=== PATIENT | male | born 1965 | race Hispanic/Latino ===

== ENCOUNTER 2017-05-06 12:08 | Inpatient (IN) | payer SELFPAY ==
--- NOTE | 2017-05-06 13:01 | RAD ---
PORTABLE CHEST: HISTORY: Chest pain. Shortness of breath. FINDINGS: The lungs appear clear. No infiltrate identified. The heart and mediastinum are unremarkable. IMPRESSION: No acute abnormality identified. POS: [facility]
--- NOTE | 2017-05-06 13:03 | RAD ---
LEFT ANKLE TWO VIEWS: HISTORY: Injury to left ankle with pain. FINDINGS/IMPRESSION: There is a fracture-dislocation at the tibiotalar joint. There is a displaced fracture of the medial malleolus, and the talus exhibits medial displacement in the frontal projection. There is a comminuted displaced fracture of the distal fibula, just above the lateral malleolus. Num erous small fragments with displacement and angulation are present at this location. POS: [facility]
[2017-05-06 13:11] LABS: Hemoglobin 13.9 g/dL (14.0-18.0); Mean Corpuscular HGB CONC 32.4 g/dL (32.0-36.0); Mean Corpuscular Hemoglobin 30.8 pg (27.0-31.0); Mean Corpuscular Volume 95.3 fl (80.0-94.0); Mean Platelet Volume 7.4 fL (7.4-10.4); Platelet Count 305 thou/uL (130-400); RBC Distribution Width 12.8 % (11.5-14.5); Red Blood Cell (RBC) Count 4.51 mill/uL (4.70-6.10)
[2017-05-06 13:32] LABS: ALT (SGPT) 38 U/L (8-55); AST (SGOT) 37 U/L (5-34); Alkaline Phosphatase 79 U/L (40-150); Anion Gap 13 mmol/L (10-20); BUN (Urea Nitrogen) 15 mg/dL (8.4-25.7); Bilirubin, Total 0.5 mg/dL (0.2-1.2); Calc. Creatinine Clearance 0 mL/min (70-130); Calcium 9.7 mg/dL (7.8-10.44); Carbon Dioxide 25 mmol/L (22-29); Chloride 106 mmol/L (98-107); Estimated GFR-MDRD 83; Globulin 3.5 g/dL (2.4-3.5); Glucose 137 mg/dL (70-105); Potassium 4.1 mmol/L (3.5-5.1); Protein, Total 7.5 g/dL (6.0-8.3); Sodium 140 mmol/L (136-145)
--- NOTE | 2017-05-06 13:35 | CT ---
CT BRAIN: Date: 05/06/17 HISTORY: Head trauma. Fall. FINDINGS: Noncontrast enhanced CT images of brain obtained. CT images of brain demonstrate the brain to be unremarkable. No evidence of intracranial masses, hemo rrhages, strokes, or contusions seen. IMPRESSION: Normal CT brain. POS: [facility]
--- NOTE | 2017-05-06 13:44 | RAD ---
TWO VIEWS RIGHT TIBIA AND FIBULA: HISTORY: Rolled ankle while loading an 18-virgen. Positive deformity. TECHNIQUE: AP and lateral views of the right tibia and fibula are obtained. FINDINGS: No evidence of right tibia or fibula fractures, subluxations, or bony lesions seen. IMPRESSION: Normal two views, right tibia and fibula. POS: [facility]
--- NOTE | 2017-05-06 13:44 | CT ---
CT FACIAL BONES: Date: 05/06/17 Multiple axial tomograms obtained through facial bones with multiplanar reconstruction. HISTORY: Injury to face with pain. FINDINGS: Nasal bones appear intact. Orbits appear intact. Zygoma appear intact. Paranasal sinuses are well aer ated. The maxilla appears intact. Mandible appears intact. IMPRESSION: No evidence of facial bones fracture. POS: [facility]
--- NOTE | 2017-05-06 13:45 | CT ---
CERVICAL SPINE CT SCAN WITHOUT IV CONTRAST: Date: 05/06/17 HISTORY: 61-year-old male with history of neck pain following an injury. FINDINGS: Patient's large body habitus somewhat lowers the sensitivity of this study. There is some generalized cervical spondylosis. No evidence for acute fracture or facet dislocation. There is some motion luisito fact. IMPRESSION: Exam is somewhat limited because of large body habitus and motion artifact. No evidence for acute fra cture or facet dislocation. POS: [facility]
--- NOTE | 2017-05-06 13:46 | RAD ---
LEFT TIBIA AND FIBULA THREE VIEWS: HISTORY: Injury to left lower extremity with pain. FINDINGS/IMPRESSION: A comminuted displaced fracture of the distal fibula diaphysis is noted, as described on ankle films. A displaced fracture of the medial malleolus and dislocation of the tibiotalar joint is also noted, as described on ankle films. The tibia and fibula, proximally, appear intact. POS: [facility]
[2017-05-06 13:52] LABS: Lymphocytes 3 % (21-51); MDiff Complete? YES; Monocytes 1 % (0-10); Neutrophil 96 % (42-75); PLT Morphology Comment Appears Adequate
[2017-05-06] MEDS ORDERED: CEFAZOLIN/Water 2 GM/20 ML SYRINGE ONE (14:34)
--- NOTE | 2017-05-06 14:53 | CON ---
DATE OF CONSULTATION: 05/06/2017 REASON FOR CONSULTATION: Left ankle fracture. 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 I was consulted for the left ankle. Exam shows left ankle has open wound medially which is freely bleeding and obvious displacement. He has pulses which can be detected by Doppler, but ar e difficult to feel due to swelling. Ankle is unstable and very painful and intact sensation to his toes. Radiograph show comminuted fibular fracture well above the mortise, disruption of the tibiofib ular syndesmosis and the medial malleolus fracture. PLAN: Open reduction and internal fixation of the ankle with ORIF of the medial malleolus, placement of a TightRope device probably two of these since he is morbidly obese, possible internal fixation o f the fibula up higher in the leg as well. This will be determined after the reduction of the syndes mosis. I think the fibula more proximally might heal better without an extensive dissection.
[2017-05-06] MEDS ORDERED: Adacel (T-DAP) 0.5 ML VIAL ONE (15:28)
[2017-05-06] MEDS ORDERED: HYDROmorphone 0.5 MG/0.5 ML SYRINGE ONE (15:48)
[2017-05-06] MEDS ORDERED: Ketorolac Tromethamine 30 MG/ML VIAL ONE (15:55)
[2017-05-06] MEDS ORDERED: Lidocaine 1% PF 5 ML VIAL ONE (16:08)
[2017-05-06] MEDS ORDERED: Dexamethasone 20 MG/5 ML VIAL ONE (16:08)
[2017-05-06] MEDS ORDERED: Succinylcholine Chloride 20 MG/ML 10 ml SYRINGE FS ONE (16:08)
[2017-05-06] MEDS ORDERED: PROPOFOL 200 MG/20 ML VIAL ONE (16:08)
[2017-05-06] MEDS ORDERED: Glycopyrrolate 0.2 MG/ML 5 ML SYRINGE ONE (16:08)
[2017-05-06] MEDS ORDERED: Ondansetron HCl/PF 4 MG/2 ML Vial ONE (16:08)
[2017-05-06] MEDS ORDERED: Midazolam HCl 2 mg/2 ml Vial ONE (16:10)
[2017-05-06] MEDS ORDERED: Fentanyl 250 MCG/5 ML VIAL ONE ×2 (16:10→18:44)
--- NOTE | 2017-05-06 17:10 | HP ---
DATE OF ADMISSION: 05/06/2017 ADMITTING PHYSICIAN: Dr. Tommy Sood. CONSULTING PHYSICIAN: Dr. Librado Moses, Orthopedics. HISTORY OF PRESENT ILLNESS: Mr. 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 He then fell to the ground and his leg bent under him. He then said he noticed a bone sticking out of his leg. He then reduced the obvious open fracture himself. EMS was summoned and he was transported to [facility] where a left open tibia/fibula fracture was identified. He denies any LOC. He does complain of pain to the right chest wall and right lateral upper back. Pain is reproducible. Pain is worse with palpation. He complains of no shortness of breath. He denies LOC. There is no active bleeding from the open fracture site. He has remained neurovascular intact. He has remained GCS 15. Pain is exacerbated by movement of the leg. Pain is relieved by nothing. PAST MEDICAL HISTORY: Hypertension. PAST SURGICAL HISTORY: Left wrist soft tissue I&D - 1997. SOCIAL HISTORY: Patient lives at home with his and child. He works as a production truck driver. He denies tobacco, alcohol, or drug use. ALLERGIES: No known drug allergies. MEDICATIONS: The patient reports he has an unknown antihypertensive; however, he rarely takes it. EKG: Normal sinus rhythm, right 90. DIAGNOSTIC IMAGING: Left leg x-ray shows a tibia and fibula fracture. SIGNIFICANT LABORATORY DATA: Hematology: WBC 21.0, RBC 4.51, hemoglobin 13.9, hematocrit 43.0, platelets 305. Chemistry: Sodium 140, potassium 4.1, chloride 106, carbon dioxide 25, BUN 15, creatinine 0.93, glucose 137. REVIEW OF SYSTEMS: Constitutional: The patient denies fever, chills, recent weight loss. HEENT: Denies pain, rhinorrhea, otorrhea. Cardiovascular: Denies chest pain, syncope. Respiratory: Denies cough, wheezing or shortness of breath. Gastrointestinal: Denies abdominal pain, nausea, vomiting, diarrhea or constipation. Musculoskeletal: Reports ankle deformity and pain after fall. Skin: Denies rashes or other injuries. Neurologic: Denies headaches. Denies focal weakness. PHYSICAL EXAMINATION: CONSTITUTIONAL: Obese male, lying on bed, nontoxic appearing, no acute distress. VITAL SIGNS: Blood pressure 105/77, pulse 93, respirations 20, O2 sat 95% on room air. HEENT: Atraumatic, normocephalic. No posterior neck pain. Trachea midline. PULMONARY: Bilateral breath sounds clear to auscultation. No respiratory distress. Chest movement symmetrical. CARDIOVASCULAR: Heart sounds normal, regular rate and rhythm. ABDOMEN: Soft, nontender, nondistended, no masses. Bowel sounds normal. EXTREMITIES: Left lower extremity with open area at the medial aspect of lower leg. Swelling above the medial malleolus. Neurovascular intact in all extremities. Cap refill brisk. NEUROLOGIC: GCS 15, awake, alert, oriented x3. SKIN: No rashes. Color normal. No trauma noted. PSYCHIATRIC: Normal mood and affect. ASSESSMENT: 1. Status post fall after being knocked to the ground by an object falling from a trailer. 2. Left open tib/fib fracture. PLAN: 1. Admit to hospital by Trauma services. 2. Dr. Moses consulted. Dr. Moses plans to take patient to the OR tonight. 3. Ancef and tetanus given by ER. 4. N.p.o., IV fluids, IV analgesia. 5. PT, OT consult with weightbearing restrictions per Orthopedic Service. 6. Chemical deep venous thrombosis prophylaxis when okay with Orthopedics. The patient was seen and examined with Dr. Sood, Attending surgeon, who agrees with plan. [facility]
[2017-05-06] MEDS ORDERED: Bupivacaine/Epinephrine 0.25% 30 ML VIAL ONE (17:11)
[2017-05-06] MEDS ORDERED: Morphine Sulfate 2 MG/ML SYRINGE SLOW IVP PRN (18:10)
[2017-05-06] MEDS ORDERED: Promethazine HCl 25 MG/ML VIAL SLOW IVP PRN (18:10)
[2017-05-06] MEDS ORDERED: HYDROmorphone 2 MG/ML VIAL SLOW IVP PRN (18:10)
[2017-05-06] MEDS ORDERED: Meperidine HCl/PF 25 MG/ML VIAL SLOW IVP PRN (18:10)
[2017-05-06] MEDS ORDERED: HYDROcodone/Acetaminophen 10/325 mg Tablet PO PRN ×2 (18:40)
[2017-05-06] MEDS ORDERED: Acetaminophen 1,000 MG in Premix Bag 1 BAG IVPB SCH ×2 (20:15→21:30)
[2017-05-06] MEDS ORDERED: Dextrose 50% Abboject 50 ML SYRINGE SLOW IVP PRN (20:15)
[2017-05-06] MEDS ORDERED: hydrALAZINE 20 MG/ML VIAL SLOW IVP PRN (20:15)
[2017-05-06] MEDS ORDERED: Dextrose 5% in Water 1,000 ML IV PRN (20:15)
[2017-05-06] MEDS ORDERED: Morphine 4 MG/ML VIAL SLOW IVP PRN (20:15)
[2017-05-06] MEDS ORDERED: traMADol HCl 50 MG TAB PO PRN ×2 (20:29)
[2017-05-06] MEDS ORDERED: Ondansetron ODT 4 MG TAB SL PRN (20:31)
--- NOTE | 2017-05-06 20:32 | OP ---
PREOPERATIVE DIAGNOSES: Severely comminuted bimalleolar ankle fracture on the left side with rupture of the syndesmosis and grade I open fracture medially. POSTOPERATIVE DIAGNOSES: Severely comminuted bimalleolar ankle fracture on the left side with ruptur e of the syndesmosis and grade I open fracture medially. SURGEON: Librado Moses M.D. ANESTHESIA: General. BLOOD LOSS: Minimal. SPECIMEN: None. DRAINS: None. COMPLICATIONS: None. TOURNIQUET TIME: 51 minutes. DESCRIPTION OF PROCEDURE: The patient was taken to the operating where general anesthesia was induce d. He received Ancef in the emergency room, and we gave him additional Ancef in the operating room. After exsanguination by elevation, the tourniquet was inflated to 350 mmHg due to his morbid obesity . I exposed the medial side first. I irrigated this with a pulsatile lavage irrigation and debrided skin and subcutaneous tissue, muscle, and bone. The fracture is anatomically reduced and provisiona lly fixed with 2 K-wires for the Synthes cannulated screw set. I then made a lateral approach. This is severely comminuted lateral side fracture with disruption of the syndesmosis. I tried to piece t ogether comminuted fragments as best as possible to gauge length and rotation of the fibula and fixed the fibula with a Synthes metaphyseal plate. Once again, I chose to use to bigger plate due to his morbid obesity. After the lateral side was fixed, I went back and used a ball-tipped ice tong type c lamp and closed down the tibiofibular syndesmosis. I dorsiflexed the foot to neutral and fixed the s yndesmosis with Arthrex suture device, called a TightRope. I then fixed the medial side with 230 mm cannulated 4.0 Synthes screws. Additional pulsatile lavage irrigation was performed. Tourniquet was released, hemostasis obtained. Subcutaneous tissue closed with 0 Vicryl laterally and 2-0 Vicryl la terally and then emile for the skin. Medially, I closed with 2-0 Vicryl and I used Prolenewillis this is where the open wound was. Sterile dressing was applied. The patient placed in a posterior splint. Postoperative plan is for him to be nonweightbearing for 3 months to allow the syndesmosis to heal. He understands this.
[2017-05-06] MEDS: CEFAZOLIN/Water 2 GM/20 ML SYRINGE SLOW IVP SCH (21:51)
[2017-05-06] MEDS: Acetaminophen 500 MG TAB PO SCH ×2 (21:53→22:04)
[2017-05-06] MEDS: Ketorolac Tromethamine 30 MG/ML VIAL IVP SCH (22:00)
[2017-05-06] MEDS: Lactated Ringer's 1,000 ML IV SCH (22:02)
[2017-05-06] MEDS: Famotidine/PF 20 mg/2ml Vial SLOW IVP SCH (22:03)
--- NOTE | 2017-05-07 01:11 | PRG ---
DATE OF SERVICE: 05/06/2017 SUBJECTIVE: This is a 51-year-old gentleman admitted to our hospital earlier today with a left lower extremity open ankle fracture, which has been repaired by Orthopedic Surgery. Upon my evaluation, t he patient complains of left lower extremity discomfort, but vocalizes no other complaint. OBJECTIVE: VITAL SIGNS: Reviewed at bedside and stable, well-developed male, no acute distress, resting in bed. LUNGS: Breathing is nonlabored. EXTREMITIES: Left lower extremity, orthopedic dressing is clean, dry, and intact. He is neurovascul shae intact distal to the side of his injury. ASSESSMENT AND PLAN: As documented in daily progress note. Continue care as ordered. Continue to m onitor. Postoperative pain management. Patient may have Toradol now. PT, OT tomorrow.
[2017-05-07] MEDS ORDERED: Acetaminophen 1,000 MG in Premix Bag 1 BAG IVPB SCH (03:00)
[2017-05-07 04:02] VITALS: BMI 55.7
[2017-05-07] MEDS: Acetaminophen 500 MG TAB PO SCH (04:59)
[2017-05-07] MEDS: Lactated Ringer's 1,000 ML IV SCH (04:59)
[2017-05-07 05:14] LABS: #Lymphocytes 1.2 thou/uL (1.20-3.40); #Monocytes 0.9 thou/uL (0.11-0.59); #Neutrophils 11.8 thou/uL (1.40-6.50); %Basophils 0.1 % (0.0-1.0); %Eosinophils 0.3 % (0.0-10.0); %Lymphocytes 8.3 % (21.0-51.0); %Monocytes 6.5 % (0.0-10.0); %Neutrophils 84.9 % (42.0-75.0); Hemoglobin 12.1 g/dL (14.0-18.0); Mean Corpuscular HGB CONC 33.4 g/dL (32.0-36.0); Mean Corpuscular Volume 92.8 fl (80.0-94.0); Mean Platelet Volume 7.1 fL (7.4-10.4); Platelet Count 289 thou/uL (130-400); RBC Distribution Width 12.5 % (11.5-14.5); Red Blood Cell (RBC) Count 3.91 mill/uL (4.70-6.10); White Blood Cell (WBC) Count 13.9 thou/uL (4.8-10.8)
[2017-05-07 05:34] LABS: Anion Gap 12 mmol/L (10-20); BUN (Urea Nitrogen) 15 mg/dL (8.9-20.6); Calc. Creatinine Clearance 237 mL/min (70-130); Carbon Dioxide 24 mmol/L (22-29); Chloride 106 mmol/L (98-107); Estimated GFR-MDRD Greater than 90; Glucose 128 mg/dL (70-105); Magnesium 2.1 mg/dL (1.6-2.6); Phosphorus 4.2 mg/dL (2.3-4.7); Potassium 4.3 mmol/L (3.5-5.1); Sodium 138 mmol/L (136-145)
[2017-05-07] MEDS: Ketorolac Tromethamine 30 MG/ML VIAL IVP SCH ×3 (06:31→18:11)
[2017-05-07] MEDS: CEFAZOLIN/Water 2 GM/20 ML SYRINGE SLOW IVP SCH ×2 (06:31→14:19)
[2017-05-07] MEDS ORDERED: HYDROcodone/Acetaminophen 10/325 mg Tablet PO PRN (06:40)
[2017-05-07] MEDS: Acetaminophen 325 MG TAB PO SCH ×3 (07:47→14:19)
[2017-05-07] MEDS ORDERED: Famotidine 40 MG/4 ML VIAL IV SCH (09:00)
[2017-05-07] MEDS: Famotidine/PF 20 mg/2ml Vial SLOW IVP SCH (09:11)
--- NOTE | 2017-05-07 09:49 | RAD ---
LEFT ANKLE 2 VIEWS: HISTORY: A 51-year-old male with a history of ORIF bimalleolar fracture. FINDINGS: Three portable fluoroscopic spot views are presented for interpretation. There are extensive plate a nd screws stabilizing distal fibular fractures and internal fixation screws stabilizing the medial ma lleolus and cable stabilizing the distal tibia and fibula. IMPRESSION: Postoperative changes stabilizing distal fibular fracture and medial malleolar fracture. POS: [facility]
[2017-05-07 15:59] VITALS: BP 136/75; TEMP 98.2
--- NOTE | 2017-05-07 16:51 | DIS ---
DATE OF ADMISSION: 05/06/2017 DATE OF DISCHARGE: 05/07/2017 ADMITTING PHYSICIAN: Dr. Tommy Sood. DISCHARGING PHYSICIAN: Dr. Tommy Sood. CONSULTING PHYSICIAN: Dr. Librado Moses, Orthopedics. REASON FOR HOSPITALIZATION: Struck by a falling object with a left leg deformity. HOSPITAL DIAGNOSES: Severely comminuted bimalleolar ankle fracture on the left side with rupture of the syndesmosis and grade I open fracture medially. PROCEDURES: Open reduction external fixation left bimalleolar open ankle fracture. Surgeon: Dr. Librado Moses. Date of surgery: 05/06/2017 PATIENT'S DISCHARGE CONDITION: Good. DISPOSITION: Discharged to home. DISCHARGE MEDICATIONS: Patient may resume all home medications. He will also be given a prescription for hydrocodone by Dr. Moses. ACTIVITY ORDERS: Nonweightbearing left lower extremity. THERAPY ORDERS: None. DIET: Regular. EQUIPMENT: Bariatric walker. FOLLOWUP: Follow up with Dr. Moses in 10 days. BRIEF HISTORY OF HOSPITALIZATION: Mr. 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 At that time, his leg rolled under him, causing him an open fracture of the left ankle. He attempted to reduce the fracture himself and then was transported to [facility]. He was admitted to the surgical floor by Trauma Services. Dr. Moses, Orthopedics, consulted and took him to the OR for fixation of the fracture. The following day, he was ambulatory with a bariatric walker with physical therapy. He was cleared for discharge home by physical therapy and by orthopedic service. Pain was well controlled. He was given a prescription for hydrocodone. He is to follow up with Dr. Moses in 2 weeks. He was given discharge instructions followup information, strict return precautions. It is not necessary for him to follow up with Trauma Services. The patient was seen and examined with Dr. Sood, who agrees with plan for discharge. [facility]
--- NOTE | 2017-05-13 11:56 | EKG ---
Test Reason : Blood Pressure : / mmHG Vent. Rate : 090 BPM Atrial Rate : 090 BPM P-R Int : 128 ms QRS Dur : 094 ms QT Int : 374 ms P-R-T Axes : 028 002 033 degrees QTc Int : 457 ms Normal sinus rhythm Normal ECG Confirmed by ROSAURA CONTRERAS M.D. ([id number]), editor book MENDEZ GUTIERREZ ([id number]) on 05/13/2017 11:56:06 AM Referred By: Confirmed By:ROSAURA CONTRERAS M.D.
== END 2017-05-07 21:28 | disposition home or self-care (01) | DRG 493 ==
LOC: EDBD 12:08 → ERS 12:08 → SDC 16:45 → SURG A 19:08
PROVIDERS: ADMIT Surgery; ATTEND Surgery
PROC: 0QSH04Z Reposition Left Tibia with Internal Fixation Device, Open Approach (ICD-10-PCS; principal; 2017-05-06)
PROC: 0QSK04Z Reposition Left Fibula with Internal Fixation Device, Open Approach (ICD-10-PCS; 2017-05-06)
DX: S82.842B Displaced bimalleolar fracture of left lower leg, initial encounter for open fracture type I or II (principal); Z68.43 Body mass index [BMI] 50.0-59.9, adult; E66.01 Morbid (severe) obesity due to excess calories; I10 Essential (primary) hypertension; W20.8XXA Other cause of strike by thrown, projected or falling object, initial encounter
CPT/HCPCS: 36415; 70450; 70486; 71045; 72125; 76001; 80048; 80053; 83735; 84100; 85025; 90715; 93005; 96374; 96375; C1713; C1769; G0390; G8978-GP-CM; G8979-GP-CK; J0131; J1100; J1170; J1885; J2001; J2250; J2405; J2704; J3010; S0028